=== PATIENT | male | born 1955 | race Caucasian/White ===

== ENCOUNTER → 2017-11-08 | Outpatient (CLI) | payer OTHER ==
[2017-11-08 19:02] LABS: STOOL FOR WBC POSITIVE (NEGATIVE)
[2017-11-08 19:33] LABS: CRYPTOSPORIDIUM PARVUM ANTIGEN NEGATIVE (NEGATIVE); GIARDIA LAMBLIA ANTIGEN NEGATIVE (NEGATIVE)
== END ==
LOC: LAB 17:46
PROVIDERS: ATTEND Nurse Practitioner Family
DX: R19.4 Change in bowel habit (principal); R19.5 Other fecal abnormalities
CPT/HCPCS: 82270; 83630; 87045; 87328; 87329; 87336; 87427; 87899

== ENCOUNTER → 2017-11-12 | Outpatient (CLI) | payer OTHER ==
--- NOTE | 2017-11-12 10:07 | RAD ---
History: Right foot pain Study: Right foot three views Findings: Three views of the right foot demonstrates spurring at the 1st and 2nd MTP joints and at th e 5th DIP joint. There is marked dorsal spurring at the 2nd and 3rd tarsometatarsal joints. No fractu re or bony destructive process is seen. Impression: Osteoarthrosis of the right foot as described. Reported By:
== END ==
LOC: RAD 09:36
PROVIDERS: ATTEND Nurse Practitioner Family
DX: M79.671 Pain in right foot (principal); M19.071 Primary osteoarthritis, right ankle and foot
CPT/HCPCS: 73630

== ENCOUNTER 2024-10-20 12:07 | Inpatient (IN) ==
--- NOTE | 2024-10-20 13:45 | DR.H&P ---
H&P History & Physical for Day of: H&P Date: 10/20/24 Chief Complaint Chief Complaint: INTRACTABLE RIGHT HIP PAIN, FEVER, CANNOT WALK History of Present Illness History of Present Illness: PT IS 69 WM, DIRECT ADMIT FROM DR SANCHEZ OFFICE WITH CO INTRACTABLE RIGHT HIP PAIN. PT REPORTS HE WAS SEEN ONE DAY AGO IN [facility] AND GIVEN FENTANYL PATCH X1. PT REPORTS HE HAS HAD FEVER AND CANNOT BEAR WEIGHT ON RIGHT LEG. PT HX OF RIGHT HIP REPLACEMENT AND WAS TOLD HE NEED AN ASPIRATION OF FLUID WHICH IS SET UP WITH DR MOISE, ORTHO IN [facility] FOR Oct. PT HAS PMH OF HTN, OA AND PROSTATE CANCER. PT ADMITTED FOR TREATMENT AND EVALUATION OF ACUTE ILLNESS Allergies Allergies Allergy/AdvReac Type Severity Reaction Status Date / Time UNOBTAINABLE Allergy Unverified 11/10/12 07:15 Review of Systems Constitutional: Fever, Chills and Weakness Eyes: No Symptoms Reported ENT: No Symptoms Reported Respiratory: Cough Cardiovascular: No Symptoms Reported Gastrointestinal: No Symptoms Reported Genitourinary: Frequency Musculoskeletal: Leg Pain Skin: No Symptoms Reported Neurological: No Symptoms Reported Physical Exam Vital Signs: Vital Signs Temperature 97.7 F Pulse Rate [Right Brachial] 66 Respiratory Rate 16 Blood Pressure [Right Arm] 138/75 O2 Sat by Pulse Oximetry 96 Oriented: Normal Eyes: Normal Nose: Normal Throat: Normal Respiratory: RLL Diminished and LLL Diminished Cardiovascular: Tachycardia Auscultation: Bowel Sounds: Normal Tenderness: Normal Skin: Diaphoresis Musculoskeletal: Right, Hip, Back:Lumbar, Tender and Motor Deficit Psychiatric: Anxiety Mood Description: Anxious Speech Pattern: Clear and Appropriate Assessment/Plan (1) Septic arthritis of hip: Status: Acute Plan: ADMIT, IV ATBX ON ADMISSION CT HIP, PAIN CONTROL VERIFY HOME MEDICATIONS BP CONTROL, BLOOD AND URINE CULTURES ON ADMISSION (2) Hypertension: Status: Acute (3) Fever: Status: Acute (4) Prostate cancer: Status: Acute
[2024-10-20 13:53] VITALS: BMI 43.8
[2024-10-20] MEDS: PROTONIX INJ 40 MG VIAL IVP SCH (14:00)
[2024-10-20] MEDS: ROCEPHIN VIAL 1 GRAM 1 G in NS 100 ML IV 100 ML IV SCH (14:11)
[2024-10-20] MEDS: NS 1,000 ML IV 1,000 ML IV SCH (14:13)
[2024-10-20] MEDS: DILAUDID INJ IVP PRN (14:13)
[2024-10-20 14:29] LABS: BASOPHILS # (AUTO) 0.1 X10^3/uL (0.0-0.1); BASOPHILS % (AUTO) 1.9 % (0.2-1.0); EOSINOPHILS % (AUTO) 0.1 % (0.9-2.9); HEMATOCRIT 46.9 % (42.0-54.0); HEMOGLOBIN 15.9 g/dL (13.5-18.0); LYMPHOCYTES # (AUTO) 0.9 X10^3/uL (1.3-2.9); LYMPHOCYTES % (AUTO) 15.2 % (21.0-51.0); MEAN CORPUSCULAR HEMOGLOBIN 29.8 pg (27.0-34.0); MEAN CORPUSCULAR HGB CONC 33.9 g/dL (33.0-35.0); MEAN CORPUSCULAR VOLUME 87.8 fL (80.0-100.0); MEAN PLATELET VOLUME 8.4 fL (7.4-11.0); MONOCYTES # (AUTO) 0.6 x10^3/uL (0.3-0.8); MONOCYTES % (AUTO) 9.8 % (0.0-13.0); NEUTROPHILS # (AUTO) 4.3 x10^3/uL (2.2-4.8); PLATELET COUNT 107 X10^3/uL (150.0-450.0); RED BLOOD COUNT 5.34 X10^6/uL (4.7-6.0); RED CELL DISTRIBUTION WIDTH 14.9 % (11.6-16.5)
[2024-10-20 14:42] LABS: ALANINE AMINOTRANSFERASE 156 Units/L (12-78); ALBUMIN 3.8 g/dL (3.4-5.0); ALKALINE PHOSPHATASE 103 Units/L (46-116); ASPARTATE AMINO TRANSFERASE 55 Units/L (15-37); BLOOD UREA NITROGEN 23 mg/dL (7-18); CALCIUM 9.9 mg/dL (8.5-10.1); CARBON DIOXIDE 28.3 mmol/L (21-32); CHLORIDE 100 mmol/L (98-107); COR NA(FOR HYPERGLY) 139 mmol/L (136-145); GLUCOSE 121 mg/dL (65-99); SODIUM 138 mmol/L (136-145); TOTAL PROTEIN 7.8 g/dL (6.4-8.2); eGFR NON BLACK RACES 58 (>60)
[2024-10-20] MEDS ORDERED: PHARMACY CONSULT - LOVENOX XX SCH (15:00)
[2024-10-20 15:01] LABS: ERYTHROCYTE SEDIMENTATION RATE 20 MM/HOUR (0-15)
[2024-10-20] MEDS ORDERED: NovoLIN R (or HumuLIN R) SUBCUT PRN (16:52)
[2024-10-20 17:26] LABS: INR 1.04 (0.8-1.3)
[2024-10-20] MEDS: LOVENOX INJ 40 MG SYR SC SCH (17:44)
--- NOTE | 2024-10-20 18:53 | CT ---
EXAM:LOWER EXT W/OHISTORY:right hip pain ;COMPARISON:None.TECHNIQUE:CT of the right hip without contrastFINDINGS:Right total hip arthroplasty is noted in good position. Bridging osteophyte right SI joint. Degenerative changes of the lumbar spine are partially visible with fusion hardware. No hip fracture or subluxation. No CT sign to suggest prosthetic loosening. Some heterotopic soft tissue mineralization noted near the trochanters is chronic in appearance. Metallic streak artifact from the arthroplasty reduces sensitivity.IMPRESSION:Nothing acuteAll CT scans at this facility use dose modulation, iterative reconstruction, and/or weight based dosing when appropriate to reduce radiation dose to as low as reasonably achievable.THIS IS AN ELECTRONICALLY VERIFIED FINAL [id number]/20/2024 6:49 PM - Electronically signed by Gerardo Alvarado MD
[2024-10-20 20:03] LABS: BILIRUBIN,URINE 2+ (NEGATIVE); BLOOD/HEMOGLOBIN,URINE NEGATIVE (NEGATIVE); GLUCOSE, URINE NEGATIVE (NEGATIVE); KETONES,URINE NEGATIVE (NEGATIVE); LEUKOCYTE ESTERASE ,URINE 1+ (NEGATIVE); NITRITES,URINE NEGATIVE (NEGATIVE); PROTEIN,URINE 3+ (NEGATIVE); UROBILINOGEN,URINE 2+ (NORMAL)
[2024-10-20 20:14] LABS: APPEARANCE,URINE SLIGHTLY HAZY (CLEAR); COLOR,URINE ORANGE (YELLOW)
[2024-10-20 20:15] LABS: RBC,URINE 0-2 /HPF (0-3)
[2024-10-20 20:16] LABS: BACTERIA,URINE 2+ /HPF (NEGATIVE); SQUAMOUS EPITHELIAL CELL,UR MODERATE /HPF (NEGATIVE)
[2024-10-20] MEDS: DESYREL PO SCH (20:43)
[2024-10-20] MEDS: SNACK - Diabetic Appropriate PO SCH (20:45)
[2024-10-20] MEDS: ZOFRAN INJ 4 MG VIAL IVP PRN (20:45)
[2024-10-21] MEDS: ULTRAM PO PRN (04:19)
[2024-10-21 05:37] LABS: BASOPHILS % (AUTO) 0.3 % (0.2-1.0); EOSINOPHILS % (AUTO) 0.8 % (0.9-2.9); HEMATOCRIT 41.9 % (42.0-54.0); HEMOGLOBIN 14.3 g/dL (13.5-18.0); LYMPHOCYTES # (AUTO) 1.3 X10^3/uL (1.3-2.9); LYMPHOCYTES % (AUTO) 30.3 % (21.0-51.0); MEAN CORPUSCULAR HEMOGLOBIN 29.6 pg (27.0-34.0); MEAN PLATELET VOLUME 8.3 fL (7.4-11.0); MONOCYTES # (AUTO) 0.5 x10^3/uL (0.3-0.8); MONOCYTES % (AUTO) 12.3 % (0.0-13.0); NEUTROPHILS # (AUTO) 2.5 x10^3/uL (2.2-4.8); NEUTROPHILS % (AUTO) 56.3 % (42.0-75.0); PLATELET COUNT 93 X10^3/uL (150.0-450.0); RED BLOOD COUNT 4.82 X10^6/uL (4.7-6.0); RED CELL DISTRIBUTION WIDTH 15.1 % (11.6-16.5); WHITE BLOOD COUNT 4.4 X10^3/uL (3.6-10.0)
[2024-10-21 05:56] LABS: ALANINE AMINOTRANSFERASE 118 Units/L (12-78); ALBUMIN 3.1 g/dL (3.4-5.0); ALKALINE PHOSPHATASE 84 Units/L (46-116); ASPARTATE AMINO TRANSFERASE 35 Units/L (15-37); BLOOD UREA NITROGEN 24 mg/dL (7-18); CALCIUM 8.8 mg/dL (8.5-10.1); CARBON DIOXIDE 28.8 mmol/L (21-32); CHLORIDE 102 mmol/L (98-107); COR CA(FOR HYPOALB) 9.5 mg/dL (8.5-10.1); COR NA(FOR HYPERGLY) 138 mmol/L (136-145); CREATININE 1.15 mg/dL (0.70-1.30); GLUCOSE 112 mg/dL (65-99); POTASSIUM 3.6 mmol/L (3.5-5.1); SODIUM 138 mmol/L (136-145); TOTAL PROTEIN 6.5 g/dL (6.4-8.2); eGFR NON BLACK RACES > 60 (>60)
[2024-10-21] MEDS ORDERED: CONSULT PHARMACY - POTASSIUM & MAGNESIUM XX SCH (07:00)
--- NOTE | 2024-10-21 08:05 | RAD ---
EXAM:AP chestHISTORY:FeverCOMPARISON:None br.br.br spaces.IMPRESSION:No significant findings.THIS IS AN ELECTRONICALLY VERIFIED FINAL [id number]/21/2024 8:01 AM - Electronically signed by Mohit Hernandez MD
[2024-10-21] MEDS: HYZAAR 50/12.5 MG PO SCH (09:00)
[2024-10-21] MEDS: MAG-OX TAB PO SCH (09:00)
[2024-10-21] MEDS: K-DUR TAB 20 MEQ PO SCH (09:00)
[2024-10-21] MEDS: BENADRYL CAP 50 MG PO PRN (09:37)
[2024-10-21] MEDS ORDERED: CRESTOR TAB 10 MG PO SCH (10:00)
[2024-10-21] MEDS ORDERED: OXYBUTYNIN CHLORIDE 10 MG PO SCH (10:00)
[2024-10-21] MEDS: OXYBUTYNIN CHLORIDE ER PO SCH (10:47)
[2024-10-21] MEDS: FLEXERIL TAB 10 MG PO PRN (10:47)
[2024-10-21] MEDS: ULORIC PO SCH (10:47)
--- NOTE | 2024-10-21 11:44 | PCM.PROG ---
Progress Note Progress Note for Day of Date of Exam: 10/21/24 Subjective Subjective: Patient seen at bedside, no acute events overnight. He is admitted for UTI and right hip pain. He reports acute on chronic right hip pain, sees Ortho in [place]. He is currently on IV Rocephin. CT right LE did not show any acute changes. Labs/imaging reviewed: -WBC 4.4 Hgb 14.3 Plt 93 K 3.6 BUN/Cr 24/1.15 lactic acid: 1.3 -CXR: no acute changes -CT LE reviewed Plan: Continue IV Rocephin, follow urine Cx. Continue pain control for hip pain. Replace electrolytes prn. Resume home medications. Patient does have a f/u with Ortho on 11/03/24. Will check with CM on Wednesday if he can get an earlier appointment. He states he has had issues with his prosthesis several times. He had right hip replacement over 10 years ago. Monitor AM labs/imaging. Past Medical Family Social History Allergies: Allergies Sulfa (Sulfonamide Antibiotics) [SULFA] Allergy (Verified 10/20/24 20:50) UNOBTAINABLE Allergy (Unverified 11/10/12 07:15) Vital Signs and I&O's Vital Signs: Vital Signs Temperature 98.1 F Temperature 97.9 F Pulse Rate 51 Pulse Rate 53 Pulse Rate 51 Pulse Rate 50 Pulse Rate 55 Pulse Rate 77 Pulse Rate 81 Pulse Rate 50 Pulse Rate 50 Pulse Rate 61 Pulse Rate 61 Pulse Rate 102 Pulse Rate 200 Pulse Rate 53 Pulse Rate 95 Pulse Rate 163 Pulse Rate 46 Pulse Rate 47 Pulse Rate 46 Pulse Rate 47 Pulse Rate 48 Pulse Rate 47 Pulse Rate 65 Pulse Rate 50 Pulse Rate 49 Pulse Rate 51 Pulse Rate 51 Pulse Rate 53 Pulse Rate 64 Pulse Rate 61 Pulse Rate 58 Pulse Rate 58 Pulse Rate 57 Respiratory Rate 17 Respiratory Rate 21 Respiratory Rate 16 Respiratory Rate 16 Respiratory Rate 17 Respiratory Rate 19 Respiratory Rate 19 Respiratory Rate 16 Respiratory Rate 14 Respiratory Rate 18 Respiratory Rate 20 Respiratory Rate 20 Respiratory Rate 18 Respiratory Rate 22 Respiratory Rate 21 Respiratory Rate 29 Respiratory Rate 21 Respiratory Rate 36 Respiratory Rate 28 Respiratory Rate 20 Respiratory Rate 12 Respiratory Rate 14 Respiratory Rate 16 Respiratory Rate 14 Respiratory Rate 20 Respiratory Rate 19 Respiratory Rate 15 Respiratory Rate 20 Respiratory Rate 15 Respiratory Rate 19 Respiratory Rate 19 Respiratory Rate 20 Respiratory Rate 16 Respiratory Rate 20 Respiratory Rate 22 Respiratory Rate 17 Respiratory Rate 17 Respiratory Rate 14 Blood Pressure 144/65 Blood Pressure 167/79 Blood Pressure 165/78 Blood Pressure 122/92 Blood Pressure 148/70 Blood Pressure 148/70 Blood Pressure 156/72 Blood Pressure 156/72 Blood Pressure 135/63 Blood Pressure 135/63 O2 Sat by Pulse Oximetry 96 O2 Sat by Pulse Oximetry 97 O2 Sat by Pulse Oximetry 94 O2 Sat by Pulse Oximetry 95 O2 Sat by Pulse Oximetry 95 O2 Sat by Pulse Oximetry 98 O2 Sat by Pulse Oximetry 97 O2 Sat by Pulse Oximetry 97 O2 Sat by Pulse Oximetry 98 O2 Sat by Pulse Oximetry 96 O2 Sat by Pulse Oximetry 96 O2 Sat by Pulse Oximetry 97 O2 Sat by Pulse Oximetry 93 O2 Sat by Pulse Oximetry 98 O2 Sat by Pulse Oximetry 96 O2 Sat by Pulse Oximetry 96 O2 Sat by Pulse Oximetry 95 O2 Sat by Pulse Oximetry 95 O2 Sat by Pulse Oximetry 94 O2 Sat by Pulse Oximetry 94 O2 Sat by Pulse Oximetry 93 O2 Sat by Pulse Oximetry 96 O2 Sat by Pulse Oximetry 96 O2 Sat by Pulse Oximetry 91 O2 Sat by Pulse Oximetry 90 O2 Sat by Pulse Oximetry 93 O2 Sat by Pulse Oximetry 90 O2 Sat by Pulse Oximetry 92 O2 Sat by Pulse Oximetry 94 O2 Sat by Pulse Oximetry 94 O2 Sat by Pulse Oximetry 91 O2 Sat by Pulse Oximetry 95 O2 Sat by Pulse Oximetry 92 Intake and Output: Intake & Output 10/18/24 10/19/24 10/20/24 10/21/24 23:59 23:59 23:59 23:59 Intake Total 1822 / 1822 955 / 955 Output Total 500 / 500 300 / 300 Balance 1322 / 1322 655 / 655 Physical Exam Oriented: Normal Eyes: Normal Nose: Normal Throat: Normal Respiratory: Normal Cardiovascular: Normal Auscultation: Bowel Sounds: Normal Palpation: Normal Tenderness: Normal Skin: Normal Musculoskeletal: Right, Hip, Back:Lumbar, Tender and Motor Deficit Psychiatric: Normal Mood Description: Calm Affect: Normal Speech Pattern: Clear and Appropriate Laboratory and Diagnostics 10/21/24 04:53 10/21/24 04:53 Labs: Laboratory WBC 4.4 X10^3/uL (3.6-10.0) 10/21/24 04:53 RBC 4.82 X10^6/uL (4.7-6.0) 10/21/24 04:53 Hgb 14.3 g/dL (13.5-18.0) 10/21/24 04:53 Hct 41.9 % (42.0-54.0) L 10/21/24 04:53 MCV 87.0 fL (80.0-100.0) 10/21/24 04:53 MCH 29.6 pg (27.0-34.0) 10/21/24 04:53 MCHC 34.0 g/dL (33.0-35.0) 10/21/24 04:53 RDW 15.1 % (11.6-16.5) 10/21/24 04:53 Plt Count 93 X10^3/uL (150.0-450.0) L 10/21/24 04:53 MPV 8.3 fL (7.4-11.0) 10/21/24 04:53 Neut % (Auto) 56.3 % (42.0-75.0) 10/21/24 04:53 Lymph % (Auto) 30.3 % (21.0-51.0) 10/21/24 04:53 [place] % (Auto) 12.3 % (0.0-13.0) 10/21/24 04:53 Eos % (Auto) 0.8 % (0.9-2.9) L 10/21/24 04:53 Baso % (Auto) 0.3 % (0.2-1.0) 10/21/24 04:53 Neut # (Auto) 2.5 x10^3/uL (2.2-4.8) 10/21/24 04:53 Lymph # (Auto) 1.3 X10^3/uL (1.3-2.9) 10/21/24 04:53 [place] # (Auto) 0.5 x10^3/uL (0.3-0.8) 10/21/24 04:53 Eos # (Auto) 0.0 x10^3/uL (0.0-0.2) 10/21/24 04:53 Baso # (Auto) 0.0 X10^3/uL (0.0-0.1) 10/21/24 04:53 Absolute Nucleated RBC 0.2 /100WBC 10/21/24 04:53 ESR 20 MM/HOUR (0-15) H 10/20/24 14:01 PT 13.4 SECONDS (11.8-14.3) 10/20/24 14:01 INR Target Range - 10/20/24 14:01 INR 1.04 (0.8-1.3) 10/20/24 14:01 Sodium 138 mmol/L (136-145) 10/21/24 04:53 Corrected Sodium 138 mmol/L (136-145) 10/21/24 04:53 Potassium 3.6 mmol/L (3.5-5.1) 10/21/24 04:53 Chloride 102 mmol/L (98-107) 10/21/24 04:53 Carbon Dioxide 28.8 mmol/L (21-32) 10/21/24 04:53 BUN 24 mg/dL (7-18) H 10/21/24 04:53 Creatinine 1.15 mg/dL (0.70-1.30) 10/21/24 04:53 Est GFR (MDRD) Af Amer > 60 (>60) 10/21/24 04:53 Est GFR (MDRD) Non-Af > 60 (>60) 10/21/24 04:53 Glucose 112 mg/dL (65-99) H 10/21/24 04:53 POC Glucose (mg/dL) 124 mg/dL (65-99) H 10/21/24 05:44 Lactic Acid 1.3 mmol/L (0.4-2.0) 10/21/24 01:00 Calcium 8.8 mg/dL (8.5-10.1) 10/21/24 04:53 Corrected Calcium 9.5 mg/dL (8.5-10.1) 10/21/24 04:53 Magnesium 1.9 mg/dL (2.0-2.9) L 10/21/24 04:53 Total Bilirubin 0.80 mg/dL (0.2-1.0) 10/21/24 04:53 AST 35 Units/L (15-37) 10/21/24 04:53 ALT 118 Units/L (12-78) H 10/21/24 04:53 Alkaline Phosphatase 84 Units/L (46-116) 10/21/24 04:53 C-Reactive Protein < 0.50 mg/L (0-3.0) 10/20/24 14:01 Total Protein 6.5 g/dL (6.4-8.2) 10/21/24 04:53 Albumin 3.1 g/dL (3.4-5.0) L 10/21/24 04:53 Globulin 3.4 g/dL (2.5-4.5) 10/21/24 04:53 Albumin/Globulin Ratio 0.9 Ratio (1.1-2.1) L 10/21/24 04:53 Specimen Type Clean catch urine 10/20/24 19:19 Urine Color [place] (YELLOW) 10/20/24 19:19 Urine Appearance Slightly hazy (CLEAR) 10/20/24 19:19 Urine pH 5.0 (5.0 - 8.0) 10/20/24 19:19 Ur Specific [place] 1.030 (1.000-1.030) 10/20/24 19:19 Urine Protein 3+ (NEGATIVE) 10/20/24 19:19 Urine Glucose (UA) Negative (NEGATIVE) 10/20/24 19:19 Urine Ketones Negative (NEGATIVE) 10/20/24 19:19 Urine Blood Negative (NEGATIVE) 10/20/24 19:19 Urine Nitrite Negative (NEGATIVE) 10/20/24 19:19 Urine Bilirubin 2+ (NEGATIVE) 10/20/24 19:19 Urine Urobilinogen 2+ (NORMAL) 10/20/24 19:19 Ur Leukocyte Esterase 1+ (NEGATIVE) 10/20/24 19:19 Urine RBC 0-2 /HPF (0-3) 10/20/24 19:19 Urine WBC 3-5 /HPF (0-5) 10/20/24 19:19 Ur Squamous Epith Cells Moderate /HPF (NEGATIVE) 10/20/24 19:19 Urine Bacteria 2+ /HPF (NEGATIVE) 10/20/24 19:19 Urine Mucus Many /HPF (NEGATIVE) 10/20/24 19:19 Ur Culture Indicated? Yes/culture set up 10/20/24 19:19 Plan (1) UTI (urinary tract infection): Status: Acute Qualifiers: Hematuria presence: without hematuria Urinary tract infection type: acute cystitis Qualified Code(s): N30.00 - Acute cystitis without hematuria (2) Septic arthritis of hip: Status: Chronic Qualifiers: Laterality: right Septic arthritis organism: due to unspecified organism Qualified Code(s): M00.9 - Pyogenic arthritis, unspecified (3) Hypertension: Status: Chronic Qualifiers: Hypertension type: primary hypertension Qualified Code(s): I10 - Essential (primary) hypertension (4) Prostate cancer: Status: Chronic
[2024-10-21] MEDS: ROBITUSSIN DM PO PRN (18:25)
[2024-10-21] MEDS ORDERED: LEXAPRO ONE (20:35)
[2024-10-21] MEDS: REQUIP PO SCH (20:42)
[2024-10-21] MEDS: DESYREL PO SCH (20:43)
[2024-10-21] MEDS: CRESTOR TAB 10 MG PO SCH (20:43)
[2024-10-21] MEDS: ZYLOPRIM PO SCH (20:43)
[2024-10-21] MEDS: COLACE CAP 100 MG PO PRN (20:43)
[2024-10-21] MEDS: LEXAPRO PO SCH (20:43)
[2024-10-21] MEDS: TOPAMAX PO SCH (20:44)
[2024-10-21] MEDS ORDERED: TOPIRAMATE 50 MG PO SCH (21:00)
[2024-10-21] MEDS ORDERED: ROSUVASTATIN PO SCH (21:00)
[2024-10-21] MEDS ORDERED: PATIENT'S HOME MEDICATION (Escitalopram Oxalate 20 mg Tablet) PO SCH (21:00)
[2024-10-22 05:29] LABS: BASOPHILS % (AUTO) 0.4 % (0.2-1.0); EOSINOPHILS # (AUTO) 0.1 x10^3/uL (0.0-0.2); EOSINOPHILS % (AUTO) 1.9 % (0.9-2.9); HEMATOCRIT 40.3 % (42.0-54.0); HEMOGLOBIN 13.6 g/dL (13.5-18.0); LYMPHOCYTES # (AUTO) 1.4 X10^3/uL (1.3-2.9); LYMPHOCYTES % (AUTO) 29.7 % (21.0-51.0); MEAN CORPUSCULAR HEMOGLOBIN 29.5 pg (27.0-34.0); MEAN CORPUSCULAR HGB CONC 33.7 g/dL (33.0-35.0); MEAN CORPUSCULAR VOLUME 87.4 fL (80.0-100.0); MEAN PLATELET VOLUME 8.7 fL (7.4-11.0); MONOCYTES # (AUTO) 0.6 x10^3/uL (0.3-0.8); MONOCYTES % (AUTO) 13.1 % (0.0-13.0); NEUTROPHILS # (AUTO) 2.5 x10^3/uL (2.2-4.8); NEUTROPHILS % (AUTO) 54.9 % (42.0-75.0); PLATELET COUNT 104 X10^3/uL (150.0-450.0); RED BLOOD COUNT 4.61 X10^6/uL (4.7-6.0); WHITE BLOOD COUNT 4.5 X10^3/uL (3.6-10.0)
[2024-10-22 05:41] LABS: ALANINE AMINOTRANSFERASE 88 Units/L (12-78); ALBUMIN 3.1 g/dL (3.4-5.0); ALKALINE PHOSPHATASE 80 Units/L (46-116); ASPARTATE AMINO TRANSFERASE 28 Units/L (15-37); BLOOD UREA NITROGEN 16 mg/dL (7-18); CALCIUM 8.8 mg/dL (8.5-10.1); CARBON DIOXIDE 32.2 mmol/L (21-32); CHLORIDE 102 mmol/L (98-107); COR CA(FOR HYPOALB) 9.5 mg/dL (8.5-10.1); CREATININE 1.11 mg/dL (0.70-1.30); GLUCOSE 106 mg/dL (65-99); POTASSIUM 4.2 mmol/L (3.5-5.1); SODIUM 139 mmol/L (136-145); TOTAL PROTEIN 6.4 g/dL (6.4-8.2); eGFR NON BLACK RACES > 60 (>60)
--- NOTE | 2024-10-22 10:41 | PCM.PROG ---
Progress Note Progress Note for Day of Date of Exam: 10/22/24 Subjective Subjective: Patient seen at bedside, no acute events overnight. He states he was able to ambulate to the bathroom and take a shower. He reports pain medicine helps but does not last long enough. He is admitted for UTI and right hip pain. He reports acute on chronic right hip pain, sees Ortho in [place]. He is currently on IV Rocephin. CT right LE did not show any acute changes. Labs/imaging reviewed: -WBC 4.5 Hgb 13 Plt 104 K 4.2 BUN/Cr 16/.11 -CXR: no acute changes -CT LE reviewed -Urine Cx: no growth Plan: Continue IV Rocephin, follow urine Cx. Blood Cx pending. Continue pain con trol for hip pain. Continue Dilaudid, stop tramadol and add [place] prn. Replace electrolytes prn. Continue home medications. Patient does have a f/u with Ortho on 11/03/24. Will check with CM on Wednesday if he can get an earlier appointment. He states he has had issues with his prosthesis several times. He had right hip replacement over 10 years ago. Monitor AM labs/imaging. Past Medical Family Social History Allergies: Allergies Sulfa (Sulfonamide Antibiotics) [SULFA] Allergy (Verified 10/20/24 20:50) UNOBTAINABLE Allergy (Unverified 11/10/12 07:15) Vital Signs and I&O's Vital Signs: Vital Signs Temperature 97.9 F Pulse Rate 92 Pulse Rate 75 Pulse Rate 94 Pulse Rate 58 Pulse Rate 60 Pulse Rate 61 Pulse Rate 70 Pulse Rate 62 Pulse Rate 63 Pulse Rate 78 Pulse Rate 81 Pulse Rate 62 Pulse Rate 64 Pulse Rate 65 Pulse Rate 111 Pulse Rate 77 Pulse Rate 73 Pulse Rate 74 Pulse Rate 66 Pulse Rate 83 Pulse Rate 59 Pulse Rate 57 Pulse Rate 58 Pulse Rate 60 Pulse Rate 68 Pulse Rate 63 Pulse Rate 63 Pulse Rate 73 Pulse Rate 92 Pulse Rate 58 Pulse Rate 73 Pulse Rate 98 Pulse Rate 59 Pulse Rate 68 Pulse Rate 60 Pulse Rate 59 Pulse Rate 59 Pulse Rate 61 Respiratory Rate 22 Respiratory Rate 21 Respiratory Rate 18 Respiratory Rate 19 Respiratory Rate 17 Respiratory Rate 18 Respiratory Rate 19 Respiratory Rate 22 Respiratory Rate 22 Respiratory Rate 21 Respiratory Rate 22 Respiratory Rate 39 Respiratory Rate 27 Respiratory Rate 22 Respiratory Rate 19 Respiratory Rate 15 Respiratory Rate 40 Respiratory Rate 27 Respiratory Rate 20 Respiratory Rate 17 Respiratory Rate 17 Respiratory Rate 20 Respiratory Rate 24 Respiratory Rate 18 Respiratory Rate 15 Respiratory Rate 15 Respiratory Rate 17 Respiratory Rate 21 Respiratory Rate 22 Respiratory Rate 12 Respiratory Rate 20 Respiratory Rate 18 Respiratory Rate 20 Respiratory Rate 20 Respiratory Rate 16 Respiratory Rate 14 Respiratory Rate 24 Respiratory Rate 15 Respiratory Rate 16 Respiratory Rate 16 Respiratory Rate 16 Respiratory Rate 16 Respiratory Rate 16 Blood Pressure 131/59 Blood Pressure 122/68 Blood Pressure 119/64 Blood Pressure 150/66 Blood Pressure 149/88 Blood Pressure 149/88 Blood Pressure 123/58 Blood Pressure 179/155 Blood Pressure 123/58 Blood Pressure 148/80 Blood Pressure 148/80 Blood Pressure 144/77 Blood Pressure 144/77 O2 Sat by Pulse Oximetry 91 O2 Sat by Pulse Oximetry 91 O2 Sat by Pulse Oximetry 98 O2 Sat by Pulse Oximetry 97 O2 Sat by Pulse Oximetry 95 O2 Sat by Pulse Oximetry 96 O2 Sat by Pulse Oximetry 96 O2 Sat by Pulse Oximetry 95 O2 Sat by Pulse Oximetry 97 O2 Sat by Pulse Oximetry 91 O2 Sat by Pulse Oximetry 95 O2 Sat by Pulse Oximetry 96 O2 Sat by Pulse Oximetry 98 O2 Sat by Pulse Oximetry 88 O2 Sat by Pulse Oximetry 90 O2 Sat by Pulse Oximetry 90 O2 Sat by Pulse Oximetry 99 O2 Sat by Pulse Oximetry 93 O2 Sat by Pulse Oximetry 100 O2 Sat by Pulse Oximetry 93 O2 Sat by Pulse Oximetry 96 O2 Sat by Pulse Oximetry 97 O2 Sat by Pulse Oximetry 86 O2 Sat by Pulse Oximetry 93 O2 Sat by Pulse Oximetry 94 O2 Sat by Pulse Oximetry 89 O2 Sat by Pulse Oximetry 95 O2 Sat by Pulse Oximetry 93 O2 Sat by Pulse Oximetry 93 O2 Sat by Pulse Oximetry 95 O2 Sat by Pulse Oximetry 95 O2 Sat by Pulse Oximetry 93 O2 Sat by Pulse Oximetry 95 O2 Sat by Pulse Oximetry 94 O2 Sat by Pulse Oximetry 95 O2 Sat by Pulse Oximetry 93 O2 Sat by Pulse Oximetry 93 O2 Sat by Pulse Oximetry 94 Intake and Output: Intake & Output 10/19/24 10/20/24 10/21/24 10/22/24 23:59 23:59 23:59 23:59 Intake Total 1822 / 1822 3824 / 3824 530 / 530 Output Total 500 / 500 700 / 700 400 / 400 Balance 1322 / 1322 3124 / 3124 130 / 130 Physical Exam Oriented: Normal Eyes: Normal Nose: Normal Throat: Normal Respiratory: Normal Cardiovascular: Normal Auscultation: Bowel Sounds: Normal Palpation: Normal Tenderness: Normal Skin: Normal Musculoskeletal: Right, Hip, Back:Lumbar, Tender and Motor Deficit Psychiatric: Normal Mood Description: Calm Affect: Normal Speech Pattern: Clear and Appropriate Laboratory and Diagnostics 10/22/24 04:25 10/22/24 04:25 Labs: 10/20/24 19:19 Urine,Clean Catch Urine Culture - Final Laboratory WBC 4.5 X10^3/uL (3.6-10.0) 10/22/24 04:25 RBC 4.61 X10^6/uL (4.7-6.0) L 10/22/24 04:25 Hgb 13.6 g/dL (13.5-18.0) 10/22/24 04:25 Hct 40.3 % (42.0-54.0) L 10/22/24 04:25 MCV 87.4 fL (80.0-100.0) 10/22/24 04:25 MCH 29.5 pg (27.0-34.0) 10/22/24 04:25 MCHC 33.7 g/dL (33.0-35.0) 10/22/24 04:25 RDW 15.0 % (11.6-16.5) 10/22/24 04:25 Plt Count 104 X10^3/uL (150.0-450.0) L 10/22/24 04:25 MPV 8.7 fL (7.4-11.0) 10/22/24 04:25 Neut % (Auto) 54.9 % (42.0-75.0) 10/22/24 04:25 Lymph % (Auto) 29.7 % (21.0-51.0) 10/22/24 04:25 [place] % (Auto) 13.1 % (0.0-13.0) H 10/22/24 04:25 Eos % (Auto) 1.9 % (0.9-2.9) 10/22/24 04:25 Baso % (Auto) 0.4 % (0.2-1.0) 10/22/24 04:25 Neut # (Auto) 2.5 x10^3/uL (2.2-4.8) 10/22/24 04:25 Lymph # (Auto) 1.4 X10^3/uL (1.3-2.9) 10/22/24 04:25 [place] # (Auto) 0.6 x10^3/uL (0.3-0.8) 10/22/24 04:25 Eos # (Auto) 0.1 x10^3/uL (0.0-0.2) 10/22/24 04:25 Baso # (Auto) 0.0 X10^3/uL (0.0-0.1) 10/22/24 04:25 Absolute Nucleated RBC 0.2 /100WBC 10/22/24 04:25 ESR 20 MM/HOUR (0-15) H 10/20/24 14:01 PT 13.4 SECONDS (11.8-14.3) 10/20/24 14:01 INR Target Range - 10/20/24 14:01 INR 1.04 (0.8-1.3) 10/20/24 14:01 Sodium 139 mmol/L (136-145) 10/22/24 04:25 Corrected Sodium TNP 10/22/24 04:25 Potassium 4.2 mmol/L (3.5-5.1) 10/22/24 04:25 Chloride 102 mmol/L (98-107) 10/22/24 04:25 Carbon Dioxide 32.2 mmol/L (21-32) H 10/22/24 04:25 BUN 16 mg/dL (7-18) 10/22/24 04:25 Creatinine 1.11 mg/dL (0.70-1.30) 10/22/24 04:25 Est GFR (MDRD) Af Amer > 60 (>60) 10/22/24 04:25 Est GFR (MDRD) Non-Af > 60 (>60) 10/22/24 04:25 Glucose 106 mg/dL (65-99) H 10/22/24 04:25 POC Glucose (mg/dL) 93 mg/dL (65-99) 10/22/24 05:32 Lactic Acid 1.3 mmol/L (0.4-2.0) 10/21/24 01:00 Calcium 8.8 mg/dL (8.5-10.1) 10/22/24 04:25 Corrected Calcium 9.5 mg/dL (8.5-10.1) 10/22/24 04:25 Magnesium 2.0 mg/dL (2.0-2.9) 10/22/24 04:25 Total Bilirubin 0.90 mg/dL (0.2-1.0) 10/22/24 04:25 AST 28 Units/L (15-37) 10/22/24 04:25 ALT 88 Units/L (12-78) H 10/22/24 04:25 Alkaline Phosphatase 80 Units/L (46-116) 10/22/24 04:25 C-Reactive Protein < 0.50 mg/L (0-3.0) 10/20/24 14:01 Total Protein 6.4 g/dL (6.4-8.2) 10/22/24 04:25 Albumin 3.1 g/dL (3.4-5.0) L 10/22/24 04:25 Globulin 3.3 g/dL (2.5-4.5) 10/22/24 04:25 Albumin/Globulin Ratio 0.9 Ratio (1.1-2.1) L 10/22/24 04:25 Specimen Type Clean catch urine 10/20/24 19:19 Urine Color [place] (YELLOW) 10/20/24 19:19 Urine Appearance Slightly hazy (CLEAR) 10/20/24 19:19 Urine pH 5.0 (5.0 - 8.0) 10/20/24 19:19 Ur Specific [place] 1.030 (1.000-1.030) 10/20/24 19:19 Urine Protein 3+ (NEGATIVE) 10/20/24 19:19 Urine Glucose (UA) Negative (NEGATIVE) 10/20/24 19:19 Urine Ketones Negative (NEGATIVE) 10/20/24 19:19 Urine Blood Negative (NEGATIVE) 10/20/24 19:19 Urine Nitrite Negative (NEGATIVE) 10/20/24 19:19 Urine Bilirubin 2+ (NEGATIVE) 10/20/24 19:19 Urine Urobilinogen 2+ (NORMAL) 10/20/24 19:19 Ur Leukocyte Esterase 1+ (NEGATIVE) 10/20/24 19:19 Urine RBC 0-2 /HPF (0-3) 10/20/24 19:19 Urine WBC 3-5 /HPF (0-5) 10/20/24 19:19 Ur Squamous Epith Cells Moderate /HPF (NEGATIVE) 10/20/24 19:19 Urine Bacteria 2+ /HPF (NEGATIVE) 10/20/24 19:19 Urine Mucus Many /HPF (NEGATIVE) 10/20/24 19:19 Ur Culture Indicated? Yes/culture set up 10/20/24 19:19 Plan (1) UTI (urinary tract infection): Status: Acute Qualifiers: Urinary tract infection type: acute cystitis Hematuria presence: without hematuria Qualified Code(s): N30.00 - Acute cystitis without hematuria (2) Septic arthritis of hip: Status: Chronic Qualifiers: Septic arthritis organism: due to unspecified organism Laterality: right Qualified Code(s): M00.9 - Pyogenic arthritis, unspecified (3) Hypertension: Status: Chronic Qualifiers: Hypertension type: primary hypertension Qualified Code(s): I10 - Essential (primary) hypertension (4) Prostate cancer: Status: Chronic
[2024-10-22] MEDS: NORCO 5/325 MG TAB PO PRN (15:16)
[2024-10-22] MEDS ORDERED: LEXAPRO ONE (19:09)
[2024-10-23 05:10] LABS: BASOPHILS % (AUTO) 0.4 % (0.2-1.0); EOSINOPHILS # (AUTO) 0.1 x10^3/uL (0.0-0.2); EOSINOPHILS % (AUTO) 2.5 % (0.9-2.9); HEMATOCRIT 38.1 % (42.0-54.0); HEMOGLOBIN 13.3 g/dL (13.5-18.0); LYMPHOCYTES # (AUTO) 1.3 X10^3/uL (1.3-2.9); LYMPHOCYTES % (AUTO) 23.9 % (21.0-51.0); MEAN CORPUSCULAR HEMOGLOBIN 30.1 pg (27.0-34.0); MEAN CORPUSCULAR HGB CONC 34.9 g/dL (33.0-35.0); MEAN CORPUSCULAR VOLUME 86.3 fL (80.0-100.0); MEAN PLATELET VOLUME 8.2 fL (7.4-11.0); MONOCYTES # (AUTO) 0.6 x10^3/uL (0.3-0.8); MONOCYTES % (AUTO) 10.8 % (0.0-13.0); NEUTROPHILS # (AUTO) 3.3 x10^3/uL (2.2-4.8); NEUTROPHILS % (AUTO) 62.4 % (42.0-75.0); PLATELET COUNT 106 X10^3/uL (150.0-450.0); RED BLOOD COUNT 4.41 X10^6/uL (4.7-6.0); RED CELL DISTRIBUTION WIDTH 14.7 % (11.6-16.5); WHITE BLOOD COUNT 5.3 X10^3/uL (3.6-10.0)
[2024-10-23 05:16] LABS: ALANINE AMINOTRANSFERASE 73 Units/L (12-78); ALBUMIN 3.1 g/dL (3.4-5.0); ALKALINE PHOSPHATASE 82 Units/L (46-116); ASPARTATE AMINO TRANSFERASE 25 Units/L (15-37); BLOOD UREA NITROGEN 11 mg/dL (7-18); CALCIUM 8.7 mg/dL (8.5-10.1); CARBON DIOXIDE 31.5 mmol/L (21-32); CHLORIDE 99 mmol/L (98-107); COR CA(FOR HYPOALB) 9.4 mg/dL (8.5-10.1); CREATININE 1.15 mg/dL (0.70-1.30); GLUCOSE 105 mg/dL (65-99); MAGNESIUM 1.9 mg/dL (2.0-2.9); POTASSIUM 3.8 mmol/L (3.5-5.1); SODIUM 138 mmol/L (136-145); TOTAL PROTEIN 6.4 g/dL (6.4-8.2); eGFR NON BLACK RACES > 60 (>60)
--- NOTE | 2024-10-23 05:49 | RAD ---
EXAM:SHOULDER, RIGHT three-viewHISTORY:right shoulder pain; fall, right shoulder painsCOMPARISON:NoneFINDINGS:The glenohumeral joint appears intact. No acute fracture or dislocation. The visualized portions of the scapula appear intact.The visualized portions of the chest demonstrate no acute process.IMPRESSION:No acute fracture or dislocation.THIS IS AN ELECTRONICALLY VERIFIED FINAL [id number]/23/2024 5:45 AM - Electronically signed by Bladimir Higuera MD
--- NOTE | 2024-10-23 08:01 | EKG ---
Test Reason : irregular rhythm Blood Pressure : */* mmHG Vent. Rate : 63 BPM Atrial Rate : 63 BPM P-R Int : 150 ms QRS Dur : 92 ms QT Int : 426 ms P-R-T Axes : * 62 38 degrees QTc Int : 435 ms Normal sinus rhythm Cannot rule out Inferior infarct , age undetermined Abnormal ECG No previous ECGs available Confirmed by Collins Monaco MD ([id number]) on 10/23/2024 8:45:26 AM Referred By: Confirmed By: Collins Monaco MD
[2024-10-23] MEDS: K-DUR TAB 20 MEQ PO SCH (08:37)
[2024-10-23] MEDS: MAG-OX TAB PO SCH (08:38)
--- NOTE | 2024-10-23 08:48 | DR.CONSULT ---
CONSULT Consultation for Day of: Date: 10/23/24 Chief Complaint Chief Complaint: hip and now shoulder pain Allergies Allergies Allergy/AdvReac Type Severity Reaction Status Date / Time Sulfa (Sulfonamide Allergy Verified 10/20/24 20:50 Antibiotics) [SULFA] UNOBTAINABLE Allergy Unverified 11/10/12 07:15 History of Present Illness History of Present Illness: 69 yo male- has cardio in [facility] ( [facility])- states abnormal stress led to cath earlier in year w/o sign disease- has htn/hlp/no smoke- not so active due to hip/knee issues/repalcements- admitted for poss uti/hip pain- sees ortho from [place]- fell last pm in shower- now shoulder hurts- consulted for irreg rhythm- review of tele: occ pvcs- alot of artifact- no sign cv for him- bp up alittle w pain Past Surgical History Surgical History: Ortho Surgery Family History Family Medical History: Diabetes Mellitus Social History Does patient currently use any type of tobacco product: No Type of Tobacco Use: None Does any household member use tobacco: No Alcohol Use: None Drug Use: None Medications Home Medications: Sulfa (Sulfonamide Antibiotics) [SULFA] Allergy (Verified 10/20/24 20:50) UNOBTAINABLE Allergy (Unverified 11/10/12 07:15) CONTINUE taking the following medications allopurinol 100 mg tablet 100 mg PO BID 10/20/24 [History] celecoxib 200 mg capsule 200 mg PO QDAY 10/20/24 [History] colchicine 0.6 mg tablet (Colcrys) 0.6 mg PO PRN PRN GOUT FLARE UP 10/20/24 [History] cyclobenzaprine 10 mg tablet 10 mg PO Q8H PRN 10/20/24 [History] escitalopram oxalate 20 mg tablet 20 mg PO HS 10/20/24 [History] famotidine 40 mg tablet 40 mg PO BID 10/20/24 [History] febuxostat 40 mg tablet (Uloric) 40 mg PO DAILY 10/20/24 [History] fentanyl 25 mcg/hr transdermal patch 25 mcg transdermal 1-3XD 10/20/24 [History] fexofenadine 180 mg tablet 180 mg PO QDAY 10/20/24 [History] furosemide 40 mg tablet 40 mg PO QAM 10/20/24 [History] hydrocodone 10 mg-acetaminophen 325 mg tablet 1 tab PO Q4-6H PRN 10/20/24 [History] indomethacin 50 mg capsule 50 mg PO BID 10/20/24 [History] losartan 50 mg-hydrochlorothiazide 12.5 mg tablet 1 tab PO QDAY 10/20/24 [History] oxybutynin chloride 10 mg tablet,extended release 24 hr 10 mg PO QDAY 10/20/24 [History] pantoprazole 40 mg tablet,delayed release (Protonix) 40 mg PO QDAY 10/20/24 [History] polyethylene glycol 3350 17 gram oral powder packet (Miralax) 17 g PO DAILY 10/20/24 [History] ropinirole 1 mg tablet 1 mg PO QHS 10/20/24 [History] rosuvastatin 10 mg sprinkle capsule 10 mg PO QDAY 10/20/24 [History] sucralfate 100 mg/mL oral suspension (Carafate) 100 mg PO BID 10/20/24 [History] tizanidine 4 mg capsule 4 mg PO Q8H PRN 10/20/24 [History] topiramate 25 mg tablet 25 mg PO BID 10/20/24 [History] topiramate 50 mg tablet (Topamax) 50 mg PO HS 10/20/24 [History] torsemide 20 mg tablet 20 mg PO QDAY 10/20/24 [History] trazodone 150 mg tablet 200 mg PO QHS 10/20/24 [History] venlafaxine 75 mg capsule,extended release 24 hr 75 mg PO QAM 10/20/24 [History] Physical Exam Vital Signs: Vital Signs Temperature 97.9 F Pulse Rate 80 Pulse Rate 96 Pulse Rate 66 Pulse Rate 57 Pulse Rate 58 Pulse Rate 59 Pulse Rate 57 Pulse Rate 55 Pulse Rate 55 Pulse Rate 64 Pulse Rate 60 Pulse Rate 63 Pulse Rate 61 Pulse Rate 68 Respiratory Rate 31 Respiratory Rate 37 Respiratory Rate 27 Respiratory Rate 15 Respiratory Rate 16 Respiratory Rate 16 Respiratory Rate 16 Respiratory Rate 13 Respiratory Rate 14 Respiratory Rate 22 Respiratory Rate 19 Respiratory Rate 18 Respiratory Rate 18 Respiratory Rate 21 Respiratory Rate 14 Respiratory Rate 20 Blood Pressure 184/86 Blood Pressure 141/74 Blood Pressure 112/65 Blood Pressure 115/61 Blood Pressure 116/77 Blood Pressure 126/73 Blood Pressure 114/56 Blood Pressure 114/52 O2 Sat by Pulse Oximetry 99 O2 Sat by Pulse Oximetry 96 O2 Sat by Pulse Oximetry 100 O2 Sat by Pulse Oximetry 100 O2 Sat by Pulse Oximetry 100 O2 Sat by Pulse Oximetry 100 O2 Sat by Pulse Oximetry 100 O2 Sat by Pulse Oximetry 100 O2 Sat by Pulse Oximetry 98 O2 Sat by Pulse Oximetry 97 O2 Sat by Pulse Oximetry 97 O2 Sat by Pulse Oximetry 91 O2 Sat by Pulse Oximetry 91 O2 Sat by Pulse Oximetry 91 alert ox3 nad clear lungs rrr no bruits minimal edema cxr: nad ekg:nsr tiny q 3/ant st/t abnl labs: wbc 5.3 hct 38 plt 106 k 3.8 mg 1.9 alb 3.1 tsh: normal Plan (1) UTI (urinary tract infection): Status: Acute Qualifiers: Urinary tract infection type: acute cystitis Hematuria presence: without hematuria Qualified Code(s): N30.00 - Acute cystitis without hematuria (2) Hypertension: Status: Chronic Qualifiers: Hypertension type: primary hypertension Qualified Code(s): I10 - Essential (primary) hypertension (3) Prostate cancer: Status: Chronic (4) PVCs (premature ventricular contractions): Status: Acute Plan: follow tele- control pain/bp- replete Mg as being done (5) Hyperlipidemia: Status: Acute
[2024-10-23] MEDS: CONSULT PHARMACY - POTASSIUM & MAGNESIUM XX SCH (10:23)
[2024-10-23] MEDS: PERCOCET TAB 5/325 MG PO PRN (14:15)
[2024-10-23] MEDS: SOLU-Medrol 40 MG VIAL IVP SCH (14:15)
[2024-10-23] MEDS ORDERED: LEXAPRO ONE (19:44)
[2024-10-24] MEDS: DILAUDID INJ IVP PRN (03:57)
[2024-10-24 05:16] LABS: BASOPHILS % (AUTO) 0.5 % (0.2-1.0); HEMATOCRIT 40.1 % (42.0-54.0); HEMOGLOBIN 13.8 g/dL (13.5-18.0); LYMPHOCYTES # (AUTO) 0.5 X10^3/uL (1.3-2.9); LYMPHOCYTES % (AUTO) 7.3 % (21.0-51.0); MEAN CORPUSCULAR HGB CONC 34.4 g/dL (33.0-35.0); MEAN CORPUSCULAR VOLUME 87.2 fL (80.0-100.0); MEAN PLATELET VOLUME 8.6 fL (7.4-11.0); MONOCYTES # (AUTO) 0.1 x10^3/uL (0.3-0.8); NEUTROPHILS # (AUTO) 5.7 x10^3/uL (2.2-4.8); NEUTROPHILS % (AUTO) 90.2 % (42.0-75.0); PLATELET COUNT 136 X10^3/uL (150.0-450.0); RED BLOOD COUNT 4.61 X10^6/uL (4.7-6.0); RED CELL DISTRIBUTION WIDTH 14.8 % (11.6-16.5); WHITE BLOOD COUNT 6.3 X10^3/uL (3.6-10.0)
[2024-10-24 05:23] LABS: ALANINE AMINOTRANSFERASE 60 Units/L (12-78); ALBUMIN 3.1 g/dL (3.4-5.0); ALKALINE PHOSPHATASE 88 Units/L (46-116); ASPARTATE AMINO TRANSFERASE 18 Units/L (15-37); BLOOD UREA NITROGEN 12 mg/dL (7-18); CALCIUM 9.3 mg/dL (8.5-10.1); CARBON DIOXIDE 28.9 mmol/L (21-32); CHLORIDE 102 mmol/L (98-107); COR NA(FOR HYPERGLY) 139 mmol/L (136-145); CREATININE 1.17 mg/dL (0.70-1.30); GLUCOSE 169 mg/dL (65-99); POTASSIUM 4.2 mmol/L (3.5-5.1); SODIUM 137 mmol/L (136-145); TOTAL PROTEIN 6.8 g/dL (6.4-8.2); eGFR NON BLACK RACES > 60 (>60)
[2024-10-24 05:52] LABS: ANISOCYTOSIS SLIGHT; PLATELET MORPHOLOGY COMMENT NORMAL (NORMAL)
--- NOTE | 2024-10-24 08:22 | NOTE.SOAP ---
Soap Note Note for Day of Date of Exam: 10/24/24 Subjective Data Subjective Data: no cardiac c/o Objective Data Objective Data: tele: sinus bp/hr good labs ok Assessment Assessment: few pvcs on monitor- asymptomatic Plan Plan: cont to observe- will sign off
[2024-10-24] MEDS: NEURONTIN CAP 300 MG PO SCH (11:42)
--- NOTE | 2024-10-24 12:25 | CT ---
EXAM:CT lumbar spine without contrastHISTORY:Low back painTECHNIQUE:Axial noncontrast images with coronal and sagittal reformats. Dose reduction procedures were used with mA/kv adjusted for body size.COMPARISON:NoneFINDINGS:Postsurgica l changes are present at L5-S1 where the patient is status post posterior fusion with hardware present. The alignment is normal with exception of grade 1 anterolisthesis L5 on S1. 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 Vertebral bodies are of average height with the exception of compression of the superior endplate of L2 age indeterminate. Pedicles, transverse processes, and posterior elements are intact with the exception of the postoperative level at L5-S1 which has been partially unroofed. Disc levels are evaluated as follows:T12-L1 level: There is disc degeneration with loss of disc height and vacuum phenomenon present. There is broad-based partially calcified disc protrusion which effaces the thecal sac and contributes to mild lateral recess narrowing bilaterally. Neural foramina are patent. Bilateral facet arthropathy is present.L1-2 level: There is disc degeneration with loss of disc height bilateral facet arthropathy contributes along with pedicular shortening to lateral recess narrowing bilaterally. Remainder of the neural foramen is patent.L2-3 level: There is disc degeneration with loss of disc height and vacuum phenomenon present. There is broad-based partially calcified disc protrusion which effaces the thecal sac and contributes along with pedicular shortening and facet arthropathy to marked lateral recess and foraminal narrowing bilaterally left worse than right.L3-4 level: There is disc degeneration with loss of disc height and vacuum phenomenon present. Spondylitic change, bilateral facet arthropathy, and pedicular shortening contributes to marked lateral recess and some foraminal narrowing bilaterally.L4-5 level: There is severe disc degeneration with loss of disc height and vacuum phenomenon present. Concentric disc bulging and spondylitic change contributes along with pedicular shortening, facet arthropathy, and spondylitic change to severe lateral recess and foraminal narrowing bilaterally.L5-S1 level: Patient is status post fusion with hardware and a disc spacer present. There is anterolisthesis L5 on S1. The anterolisthesis, spondylitic change, and facet arthropathy contributes to severe lateral recess and foraminal narrowing bilaterally.IMPRESSION:Compression fracture of the superior endplate of L2, age indeterminateDiffuse bilateral pedicular shortening L1 through S1 which contributes to a congenital canal stenosisPostsurgical changes at L5-S1 with hardware and a disc spacer present.Multilevel severe degenerative disc disease, facet arthropathy, spondylitic change all contributing to bilateral lateral recess and neural foraminal narrowing of varying degrees of severity described in detail for each level above. Patient may benefit from MRI of the lumbar spineTHIS IS AN ELECTRONICALLY VERIFIED FINAL [id number]/24/2024 12:21 PM - Electronically signed by Bladimir Higuera MD
--- NOTE | 2024-10-24 12:33 | CT ---
EXAM:CT right shoulder without contrastHISTORY:Right shoulder painTECHNIQUE:Axial noncontrast images with coronal and sagittal reformats. Dose reduction procedures were used with mA/kv adjusted for body size.COMPARISON:Plain films 10/22/2024FINDINGS:The visualized distal clavicle is intact. AC joint is intact. There is relatively severe AC joint degenerative joint disease with inferior osteophyte formation which could contribute to impingement. MRI may be of further diagnostic value if clinically indicated. There is superior humeral migration which can be seen with chronic rotator cuff disease which could also be better evaluated with MRI. Glenohumeral joint degenerative joint disease is present. Proximal humerus is intact. Scapula is intact. Right upper ribs are intact. Visualized right lung apex appears clear.IMPRESSION:Relatively severe AC joint degenerative joint disease with inferiorly projecting spur could contribute to impingement. MRI may be of further diagnostic value if clinically indicatedSuperior humeral migration which can be seen with chronic rotator cuff disease. Once again, MRI would be of further diagnostic value if clinically indicated.Glenohumeral joint degenerative joint diseaseTHIS IS AN ELECTRONICALLY VERIFIED FINAL [id number]/24/2024 12:30 PM - Electronically signed by Bladimir Higuera MD
[2024-10-24] MEDS ORDERED: LEXAPRO ONE (19:54)
[2024-10-25 06:13] LABS: BASOPHILS % (AUTO) 0.3 % (0.2-1.0); HEMATOCRIT 37.3 % (42.0-54.0); HEMOGLOBIN 12.8 g/dL (13.5-18.0); LYMPHOCYTES # (AUTO) 0.7 X10^3/uL (1.3-2.9); LYMPHOCYTES % (AUTO) 5.5 % (21.0-51.0); MEAN CORPUSCULAR HEMOGLOBIN 29.7 pg (27.0-34.0); MEAN CORPUSCULAR HGB CONC 34.4 g/dL (33.0-35.0); MEAN CORPUSCULAR VOLUME 86.2 fL (80.0-100.0); MEAN PLATELET VOLUME 8.6 fL (7.4-11.0); MONOCYTES # (AUTO) 0.3 x10^3/uL (0.3-0.8); MONOCYTES % (AUTO) 2.6 % (0.0-13.0); NEUTROPHILS # (AUTO) 11.3 x10^3/uL (2.2-4.8); NEUTROPHILS % (AUTO) 91.6 % (42.0-75.0); PLATELET COUNT 153 X10^3/uL (150.0-450.0); RED BLOOD COUNT 4.33 X10^6/uL (4.7-6.0); RED CELL DISTRIBUTION WIDTH 14.7 % (11.6-16.5); WHITE BLOOD COUNT 12.3 X10^3/uL (3.6-10.0)
[2024-10-25 06:34] LABS: ALANINE AMINOTRANSFERASE 48 Units/L (12-78); ALKALINE PHOSPHATASE 79 Units/L (46-116); ASPARTATE AMINO TRANSFERASE 13 Units/L (15-37); BLOOD UREA NITROGEN 15 mg/dL (7-18); CALCIUM 8.9 mg/dL (8.5-10.1); CARBON DIOXIDE 27.6 mmol/L (21-32); CHLORIDE 104 mmol/L (98-107); COR CA(FOR HYPOALB) 9.7 mg/dL (8.5-10.1); COR NA(FOR HYPERGLY) 139 mmol/L (136-145); CREATININE 1.16 mg/dL (0.70-1.30); GLUCOSE 130 mg/dL (65-99); POTASSIUM 4.3 mmol/L (3.5-5.1); SODIUM 138 mmol/L (136-145); TOTAL PROTEIN 6.3 g/dL (6.4-8.2); eGFR NON BLACK RACES > 60 (>60)
[2024-10-25 07:23] LABS: BASOPHILS % (MANUAL) 0 % (0-1); PLATELET MORPHOLOGY COMMENT NORMAL (NORMAL)
[2024-10-25] MEDS: ROBITUSSIN DM PO SCH (13:48)
[2024-10-25] MEDS ORDERED: LEXAPRO ONE (19:52)
[2024-10-25] MEDS: CITRACAL + VITAMIN D PO SCH (20:41)
[2024-10-26 05:51] LABS: BASOPHILS % (AUTO) 0.4 % (0.2-1.0); EOSINOPHILS % (AUTO) 0.1 % (0.9-2.9); HEMATOCRIT 37.2 % (42.0-54.0); HEMOGLOBIN 12.7 g/dL (13.5-18.0); LYMPHOCYTES # (AUTO) 1.7 X10^3/uL (1.3-2.9); MEAN CORPUSCULAR HEMOGLOBIN 29.9 pg (27.0-34.0); MEAN CORPUSCULAR HGB CONC 34.2 g/dL (33.0-35.0); MEAN CORPUSCULAR VOLUME 87.2 fL (80.0-100.0); MEAN PLATELET VOLUME 8.1 fL (7.4-11.0); MONOCYTES # (AUTO) 0.6 x10^3/uL (0.3-0.8); MONOCYTES % (AUTO) 7.2 % (0.0-13.0); NEUTROPHILS # (AUTO) 5.7 x10^3/uL (2.2-4.8); NEUTROPHILS % (AUTO) 71.3 % (42.0-75.0); PLATELET COUNT 169 X10^3/uL (150.0-450.0); RED BLOOD COUNT 4.27 X10^6/uL (4.7-6.0); RED CELL DISTRIBUTION WIDTH 14.6 % (11.6-16.5); WHITE BLOOD COUNT 8.1 X10^3/uL (3.6-10.0)
[2024-10-26 06:02] LABS: ALANINE AMINOTRANSFERASE 42 Units/L (12-78); ALBUMIN 2.8 g/dL (3.4-5.0); ALKALINE PHOSPHATASE 70 Units/L (46-116); ASPARTATE AMINO TRANSFERASE 12 Units/L (15-37); BLOOD UREA NITROGEN 19 mg/dL (7-18); CALCIUM 8.8 mg/dL (8.5-10.1); CARBON DIOXIDE 30.2 mmol/L (21-32); CHLORIDE 105 mmol/L (98-107); COR CA(FOR HYPOALB) 9.8 mg/dL (8.5-10.1); CREATININE 1.18 mg/dL (0.70-1.30); GLUCOSE 84 mg/dL (65-99); MAGNESIUM 2.1 mg/dL (2.0-2.9); SODIUM 139 mmol/L (136-145); TOTAL PROTEIN 6.1 g/dL (6.4-8.2); eGFR NON BLACK RACES > 60 (>60)
--- NOTE | 2024-10-26 07:50 | CT ---
EXAM:CT abdomen pelvis with contrastHISTORY:Fever, abdominal pain, UTI, prostate cancerTECHNIQUE:Axial postcontrast images with coronal and sagittal reformats. Dose reduction procedures were used with mA/kv adjusted for body size.COMPARISON:NoneFINDINGS:Lung bases are clear. Heart is mildly enlarged. Liver, spleen, adrenal glands, and pancreas appear within normal limits. No opaque stones are present within the gallbladder. Kidneys are unobstructed and without stones or masses. No ureteral calculi are identified. Appendix not identified with absolute certainty. No secondary signs of appendicitis identified. Abdominal aorta is mildly ectatic but nondilated. Minimal calcific atherosclerotic change is present. No intraperitoneal or retroperitoneal lymphadenopathy of significance is identified. There are no findings suggestive of enteritis, colitis, or diverticulitis. There is a moderately large amount of stool throughout the colon suggestive of possible constipation. Examination of the pelvis demonstrated a well marginated oblong lesion of centrally decreased attenuation measuring approximately 6.1 by 5 by 6.2 cm within the left hemipelvis. There is questionably some calcification within the wall. No definite flow identified within the lesion. The lesion is in the area of the left internal iliac artery and could represent a thrombosed left internal iliac artery aneurysm. Correlation with CTA of the abdomen and pelvis is recommended. MRI of the pelvis may also be of further diagnostic value. If this proves to be an unusual thrombosed internal iliac artery aneurysms vascular surgery consultation will be indicated. No pelvic fluid or pelvic lymphadenopathy identified. No intrinsic bladder abnormality identified. No lytic or blastic skeletal lesions of significance are identified. Postsurgical changes are present at L5-S1.IMPRESSION:No definite acute inflammatory process identified within the abdomen or pelvis6.1 x 5 x 6.2 cm well marginated oblong mass of centrally decreased attenuation and possibly some mural calcification located in the left hemipelvis possibly a thrombosed left internal iliac artery aneurysm. Other etiologies are possible. CTA of the abdomen pelvis is recommended for further evaluation. MRI of the pelvis may also be of further diagnostic value. If this proves to be a left internal iliac artery aneurysm, expedient vascular surgery consultation would be indicated.Large amount of stool throughout the colon suggestive of possible constipationTHIS IS AN ELECTRONICALLY VERIFIED FINAL REPORT10/26/2024 7:47 AM - Electronically signed by Bladimir Higuera MD
[2024-10-26] MEDS ORDERED: OMNIPAQUE 350 mg/mL 100 mL BTL 100 ML ONE (09:21)
[2024-10-26] MEDS: OMNIPAQUE 350 mg/mL 100 mL BTL 100 ML ONE (09:22)
[2024-10-26] MEDS: READI-CAT 2 ONE (09:22)
--- NOTE | 2024-10-26 13:31 | CT ---
EXAM:CTA abdomen pelvis with and without contrastHISTORY:Pelvic mass on prior CTTECHNIQUE:Axial pre and postcontrast images with coronal and sagittal reformats. Three-dimensional maximum intensity projection images were obtained and evaluated. Dose reduction techniques were used with MA/kv adjusted for body size.COMPARISON:CT abdomen pelvis with contrast same dateFINDINGS:Vascular findings: Abdominal aorta is normal in size and configuration and without significant calcific atherosclerotic change or dissection. There is calcific atherosclerotic change at the origin of the celiac axis without significant stenosis. Similar calcific atherosclerotic changes present at the origin of the SMA without significant stenosis. Renal arteries are well-visualized and bilaterally patent. LIANET is normal. Common iliac arteries are somewhat ectatic but nondilated and patent. The internal and external iliac arteries appear patent. Calcific atherosclerotic changes present in the left internal iliac artery. In the left hemipelvis there is once again noted to be a well marginated 5.9 x 5.1 by 6.2 cm low-attenuation lesion demonstrating no evidence for contrast within it. On routine contrast-enhanced CT abdomen pelvis this was felt to possibly be an internal iliac artery aneurysms. However best visualized on CT series 15, image 35 is draping of the partially calcified internal iliac artery over the periphery of the mass. The mass does not appear to be originating from the left internal iliac artery. However it does appear to be vascular in origin as there is noted an enhancing vascular structure distal to this lesion extending into the left inguinal canal. It is possibly of venous origin. In any case, it does appear thrombosed. MRI of the pelvis with and without contrast may be of further diagnostic value. Vascular surgery evaluation would seem indicated.Nonvascular findings: Unchanged from CT abdomen pelvis with contrast earlier today.IMPRESSION:5.9 x 5.1 by 6.2 cm well marginated oblong mass of centrally decreased attenuation in the left hemipelvis. The additional visualization of the left internal iliac artery provided by CTA suggests that this does not represent a left internal iliac artery aneurysms. However associated dense enhancement of avascular structure that can be followed into the left inguinal canal suggests the possibility that this represents a thrombosed venous structure possibly a chronic venous aneurysms. Other etiologies are possible. MRI of the pelvis with and without contrast may be of further diagnostic value in assessing the vascular structures and also in excluding other possible etiologies. Vascular surgery consultation would also seem indicatedTHIS IS AN ELECTRONICALLY VERIFIED FINAL REPORT10/26/2024 1:28 PM - Electronically signed by Bladimir Higuera MD
[2024-10-26 15:58] VITALS: BP 172/74; PULSE 55; TEMP 97.5; O2SAT 98
[2024-10-26 19:46] VITALS: RESP 20
== END 2024-10-26 19:55 | disposition short-term general hospital (02) | DRG 690 ==
LOC: ICU → OBSVTOIN 13:22 → INTOOBSV 13:22 → MED/SURG 10-24 13:24
PROVIDERS: ADMIT Internal Medicine; ATTEND Internal Medicine
DX: Y92.231 Patient bathroom in hospital as the place of occurrence of the external cause; E78.5 Hyperlipidemia, unspecified; C61 Malignant neoplasm of prostate; W18.2XXA Fall in (into) shower or empty bathtub, initial encounter; S32.008A Other fracture of unspecified lumbar vertebra, initial encounter for closed fracture; R70.0 Elevated erythrocyte sedimentation rate; I49.3 Ventricular premature depolarization; R26.89 Other abnormalities of gait and mobility; N30.00 Acute cystitis without hematuria; R94.31 Abnormal electrocardiogram [ECG] [EKG]; M25.511 Pain in right shoulder; K59.09 Other constipation; E11.65 Type 2 diabetes mellitus with hyperglycemia; I10 Essential (primary) hypertension; R79.89 Other specified abnormal findings of blood chemistry; M54.59 Other low back pain; M00.9 Pyogenic arthritis, unspecified; M25.551 Pain in right hip